=== PATIENT | female | born 1965 | race Caucasian/White ===

== ENCOUNTER 2021-11-26 10:54 | Inpatient (IN) ==
[2021-11-26] MEDS ORDERED: AMPICILLIN/SULBACTAM 3,000 MG in SODIUM CHLORIDE 0.9% 100 ML IV STA (12:30)
[2021-11-26] MEDS ORDERED: DIPH/TET/ACEL PERT BOOSTER VACCINE 0.5 ML VIAL IM ONE (13:11)
[2021-11-26 13:25] LABS: Basophils # 0.1 10*3/uL (0.0-0.2); Basophils % 0.5 % (0.0-0.8); Eosinophils # 0.1 10*3/uL (0.0-0.87); Eosinophils % 0.3 % (0.00-10.9); Hematocrit 41.3 VOL% (35.7-47.0); Hemoglobin 12.9 GM/DL (12.0-16.0); Immature Granulocytes % 0.5 %; Immature Granulocytes Absolute 0.09 #; Lymphocytes # 1.8 10*3/uL (1.4-4.0); Lymphocytes % 10.5 % (21.3-54.2); Mean Corpuscular HGB Conc 31.2 GM/DL (32-36); Mean Corpuscular Volume 83.6 FL (87-102); Mean Platelet Volume 9.1 FL (9.6-12.0); Monocytes # 0.9 10*3/uL (0.11-0.8); Monocytes % 5.2 % (1.7-12.7); Platelet Count 287 T/CUMM (130-400); Red Blood Count 4.94 MC/CUMM (3.8-5.5); Red Cell Distribution Width 14.4 % (9.3-17.3); White Blood Count 16.9 T/CUMM (4-12)
[2021-11-26] MEDS ORDERED: HYDROmorphone 1 MG/1 ML SYRINGE IV STA (13:27)
[2021-11-26] MEDS ORDERED: ONDANSETRON 4 MG/2 ML VIAL IV STA (13:27)
[2021-11-26 13:39] LABS: Calcium 9.6 MG/DL (8.5-10.1); Osmolality,Calculated 281.4 MOS/KG (273-304); Potassium 4.1 MMOL/L (3.5-5.1)
[2021-11-26] MEDS ORDERED: MAGNESIUM HYDROXIDE SUSP 30 ML UDCUP PO PRN (15:00)
[2021-11-26] MEDS ORDERED: LIDOCAINE 2% 5 ML VIAL ONE (15:48)
[2021-11-26] MEDS ORDERED: propofoL 200 MG/20 ML VIAL IV ONE (15:48)
[2021-11-26] MEDS ORDERED: fentaNYL 100 MCG/2 ML VIAL ONE ×2 (15:49→17:19)
[2021-11-26] MEDS ORDERED: MIDAZOLAM 2 MG/2 ML VIAL ONE (15:49)
[2021-11-26] MEDS: SODIUM CHLORIDE 0.9% 1,000 ML IV SCH ×2 (15:58→19:51)
[2021-11-26] MEDS ORDERED: BUPIVACAINE MPF 0.25% 10 ML VIAL ONE (17:05)
[2021-11-26] MEDS ORDERED: BACITRACIN OINT 0.9 GM PACK TOP ONE (17:05)
[2021-11-26] MEDS ORDERED: SUCCINYLCHOLINE 200 MG/10 ML VIAL ONE (17:05)
[2021-11-26] MEDS ORDERED: PHENYLEPHRINE 1 MG/10 ML SYRINGE IV ONE ×2 (17:05→17:46)
[2021-11-26] MEDS ORDERED: ONDANSETRON 4 MG/2 ML VIAL ONE (17:05)
[2021-11-26] MEDS ORDERED: ePHEDrine 50 MG/ML VIAL ONE (17:05)
[2021-11-26] MEDS ORDERED: ONDANSETRON 4 MG/2 ML VIAL IV PRN (18:49)
[2021-11-26] MEDS: HYDROmorphone 1 MG/1 ML SYRINGE IV PRN ×2 (18:51→19:02)
[2021-11-26] MEDS ORDERED: ENOXAPARIN 40 MG/0.4 ML SYRINGE SUBCUT SCH (21:00)
[2021-11-27] MEDS: AMPICILLIN/SULBACTAM 3,000 MG in SODIUM CHLORIDE 0.9% 100 ML IV SCH ×2 (00:55→10:18)
[2021-11-27] MEDS: SODIUM CHLORIDE 0.9% 1,000 ML IV SCH ×2 (06:40→13:07)
[2021-11-27] MEDS ORDERED: PANTOPRAZOLE 40 MG TABLET PO SCH (09:00)
[2021-11-27 12:33] VITALS: BP 99/68
== END 2021-11-27 15:26 | disposition home or self-care (01) | DRG 316 ==
LOC: N.ED 10:54 → N.3E 15:01 → INTOOBSV 15:01 → N.3E 16:41
PROVIDERS: ADMIT Orthopaedic Surgery; ATTEND Orthopaedic Surgery